=== PATIENT | female | born 1975 | race Caucasian/White ===

== ENCOUNTER 2021-05-28 00:30 | Emergency (ER) | payer OTHER, SELFPAY ==
[2021-05-28] VITALS (23 sets, daily range): BP systolic 97–128; BP diastolic 70–91; PULSE 80–219; RESP 14–25; TEMP 36.3; O2SAT 96–100
--- NOTE | ~2021-05-28 | XR_ITS ---
XR chest 1V portable DATE: 05/28/2021 01:04 INDICATION: Palpitations TECHNIQUE: Portable upright AP chest on 05/28/2021] 0101 hours COMPARISON: None FINDINGS: There is pulmonary vascular congestion and redistribution. Sim B-lines are noted there i s prominence of the minor fissure. Heart size is normal. Mild infiltrate or atelectasis in the lower lung zones; otherwise no pulmonary consolidation, pleural effusion or pneumothorax is detected. IMPRESSION: Pulmonary vascular congestion and pulmonary interstitial and subpleural edema Mild infiltrate or atelectasis in the lower lung zones Dustin Frausto telephoned the report to emergency room physician Dr. Landis on at 0846 hours. Reviewed, dictated and finalized at location A. UTER AIDED DESIGN TECHNICIAN IMPRESSION: Pulmonary vascular congestion and pulmonary interstitial and subple ural edema Mild infiltrate or atelectasis in the lower lung zones Dustin Frausto telephoned the report to emergency room physician Dr. Landis on at 0846 hours.
--- NOTE | 2021-05-28 00:32 | ECG_ITS ---
Measurements Intervals [place] Rate: 209 P: [place]: 0 QRS: 46 QRSD: 74 T: 148 QT: 205 QTc: 382 Interpretive Statements SUPRAVENTRICULAR TACHYCARDIA NONSPECIFIC ST & T-WAVE ABNORMALITY- DIFFUSE LEADS ABNORMAL ECG Electronically Signed On 05-28-2021 6:30:11 CHANNEL MACHINE OPERATOR by Scott Lopez D.O.
--- NOTE | 2021-05-28 00:57 | PC.NURSE ---
6mg of adenosine going, erp at bedside. Patient converted from 212 to 103. Patient tolerated well.
[2021-05-28] MEDS: ADENOSINE IV SOLN 6 MG/2 ML VIAL 18 MG (00:59)
--- NOTE | 2021-05-28 01:03 | PC.NURSE ---
xray in room.
[2021-05-28 01:31] LABS: Basophils Absolute Auto 0.1 K/mm3 (0.0-0.1); Basophils Percent Auto 0.8 % (0.2-1.2); Eosinophils Absolute Auto 0.2 K/mm3 (0-0.3); Eosinophils Percent Auto 4.1 % (0-4.4); Hemoglobin 13.8 g/dL (12.0-15.0); Immature Granulocyte Absolute 0.06 K/mm3 (0.00-0.031); Lymphocytes Absolute Auto 1.97 K/mm3 (0.9-3.2); Lymphocytes Percent Auto 33.4 % (18.3-44.2); Mean Corpuscular HGB Conc 32.9 g/dl (32-36); Mean Corpuscular Hemoglobin 29.2 pg (26-34); Mean Corpuscular Volume 88.8 fl (80-100); Mean Platelet Volume 9.5 fl (7.4-10.4); Monocytes Absolute Auto 0.4 K/mm3 (0.1-0.6); Monocytes Percent Auto 7.5 % (2.6-8.5); Neutrophils Absolute Auto 3.1 K/mm3 (1.3-6.7); Neutrophils Percent Auto 53.2 % (45.5-73.1); Platelet Count Result 219 k/mm3 (150-375); Red Blood Count 4.73 M/mm3 (4.2-5.4); Red Cell Distribution Width 13.4 % (11.5-14.5); White Blood Count 5.9 K/mm3 (4.5-10.0)
[2021-05-28 01:36] LABS: Alanine Aminotransferase 24 U/L (4-35); Alkaline Phosphatase 98 U/L (38-126); Anion Gap 9 mmol/L (8-16); Aspartate Amino Transferase 29 U/L (14-36); Bilirubin,Total 0.6 mg/dL (0.2-1.3); Blood Urea Nitrogen 22 mg/dL (7-17); Calcium 8.3 mg/dL (8.4-10.2); Carbon Dioxide 23 mmol/L (22-30); Chloride 106 mmol/L (98-107); Estimated Glomerular Filt Rate > 60; Glucose 119 mg/dL (65-110); Magnesium 1.9 mg/dL (1.6-2.3); Potassium 3.9 mmol/L (3.4-5.0); Sodium 138 mmol/L (137-145)
--- NOTE | 2021-05-28 03:02 | ED.ARRPALP ---
HPI - Arrhythmia/Palpitations General Chief Complaint: Arrhythmia/Palpitations Stated Complaint: palpations Time Seen by Provider: 05/28/21 00:40 History of Present Illness HPI narrative: Patient is a 46-year-old female who presents ER with heart palpitations. Racing began 15 minutes prior to arrival. No improvement with vagal maneuvers or carotid massage. Has history of PSVT. Does not take any rate control medications. Reports that she had an episode on 05/04/2021 while in [place] and had to be given adenosine 6 mg. Prior to that she had not had an episode in 5 years. She has been referred to an head of marketing analytics in the past but chose not to have procedure. Patient reports she had some decaf coffee today. She does report she has had some coffee with regularity over the last week. No other stimulants. No drug use. Patient reports she is supposed to be set up for a sleep study in the near future. Denies any orthopnea. No leg swelling. Patient reports she has had some fluttering throughout the week which often is a precursor to having SVT. Related Data Allergies Allergy/AdvReac Type Severity Reaction Status Date / Time azithromycin Allergy Unknown Unknown Verified 04/30/21 08:53 Sulfa (Sulfonamide Allergy Unknown Unknown Verified 04/30/21 08:53 Antibiotics) Review of Systems Review of Systems: All systems reviewed & are unremarkable except as noted in HPI and below Constitutional: Constitutional: Denies chills, Denies fever(s) and Denies weakness ENT: Denies nasal congestion and Denies sore throat Cardiovascular: Cardiovascular: Denies chest pain, Reports rapid heart rate and Denies radiating jaw, neck or arm pain Respiratory: Respiratory: Denies cough, Denies dyspnea and Denies wheezing Gastrointestinal: Gastrointestinal: Denies nausea and Denies vomiting Neurologic: Denies focal weakness and Denies numbness PMF Past Medical History Medical History Anxiety History of pulmonary embolism (~05/2005) Hyperlipidemia DANNA (obstructive sleep apnea) PSVT (paroxysmal supraventricular tachycardia) (vaginal after ) 2004, 2005 Vitamin D deficiency Surgical History Surgical History H/O section (~2000) Family History Family History Grandparent Family history of malignant neoplasm of brain Family history of heart disease in male family member before age 55 Other Family history of alcoholism Family history of malignant neoplasm Family history of mental disorder Hypertension Social History Social History Social History: Patient is , lives in [place]. 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 Smoking status: Never smoker Alcohol intake: current Exam Narrative: GENERAL: Well-appearing, obese, and in no acute distress. HEAD: Normocephalic, atraumatic. NECK: Supple. CHEST: Clear to auscultation. No respiratory distress. HEART: Tachycardic and regular. Normal peripheral pulses. ABDOMEN: Soft, nontender, nondistended EXTREMITIES: Normal range of motion. No edema. SKIN: Warm, dry, no rash. NEURO: Alert and oriented x3. PSYCH: Normal mood and affect. Course Course Emergency Course: Rate controlled with adenosine 6 mg. Patient resting comfortably. Discussed case with Dr. Lopez. Recommends metoprolol succinate 25 mg daily and follow-up in office. Patient verbalized understanding. Discharge home. Will give first dose here. Vital Signs Vital signs: Vital Signs Temperature 97.3 F L 05/28/21 00:44 Pulse Rate 214 H 05/28/21 00:44 Respiratory Rate 24 H 05/28/21 00:44 Blood Pressure 128/73 05/28/21 00:44 Pulse Oximetry 100 05/28/21 00:44 Temperature 97.3 F L 05/28/21 00:44 Pulse Rate 214 H 05/28/21 00:44 Respir
[2021-05-28 03:05] LABS: Free T4 Free Thyroxine Reflex 0.72 ng/dL (0.78-2.19)
[2021-05-28] MEDS: METOPROLOL SUCCINATE EXT REL 25 MG TABCR PO (03:40)
== END 2021-05-28 03:46 | disposition home or self-care (01) ==
PROVIDERS: Emergency Provider Emergency Medicine; PCP Family Medicine
DX: I47.1 Supraventricular tachycardia (principal); E78.5 Hyperlipidemia, unspecified; G47.33 Obstructive sleep apnea (adult) (pediatric); E55.9 Vitamin D deficiency, unspecified; F41.9 Anxiety disorder, unspecified; Z86.711 Personal history of pulmonary embolism; R94.31 Abnormal electrocardiogram [ECG] [EKG]; R09.89 Other specified symptoms and signs involving the circulatory and respiratory systems; J81.1 Chronic pulmonary edema
CPT/HCPCS: 36415; 71045; 80053; 83735; 84439; 84443; 85025; 93005; 96374; 99284; A9270; J0153

== ENCOUNTER 2021-06-01 08:06 | Outpatient (CLI) | payer OTHER, SELFPAY ==
--- NOTE | 2021-06-06 14:42 | WPDHOMESLEEP ---
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 She is having cardiac problems with SVT and her consulting psychologist is concerned that she has sleeping issues. She stopped using CPAP after she lost 80 lb many years ago. She has since gained the weight back. She has difficulty falling asleep, difficulty waking in the morning and she has excessive daytime sleepiness. She rarely awakens from sleep feeling short of breath. She frequently awakens at night with heartburn, belching or coughing. She frequently snores and it is enough that complain about it. She frequently has trouble sleeping with a cold. She does not wake as gasping for breath at night. She occasionally has breathing problems at night observed by others. She frequently sweats excessively at night. She occasionally notices her heart pounding or beating irregularly at night. She occasionally falls asleep during the day, rarely falls asleep involuntarily, does not fall asleep while driving. She does not have loss of muscle tone with strong emotion. She occasionally has daytime difficulties due to excessive sleepiness. She rarely feels paralyzed on waking or falling asleep and rarely has vivid dreamlike scenes upon awakening or falling asleep. He does not feel afraid to go to sleep. She occasionally has nightmares. She occasionally remembers her dreams. She frequently has racing thoughts. She rarely feels sad or depressed. She occasionally has anxiety and takes medications for this. She occasionally has muscular tension. She frequently notices parts of her body jerking. She does not kick at night and does not have crawling and aching feelings in her legs. She rarely has any kind of leg pain at night. She does not have morning jaw pain. She frequently grinds her teeth during sleep. She rarely is bothered by pain during the day. She occasionally is awakened by pain at night. She does not wake up feeling stiff in the morning with sore achy muscles. She rarely wakes up with pain in the neck and spine. She has dizziness, headaches, palpitations, fatigue and memory problems. She takes antacids. She reports a 45 lb increase in the last year. Normal bedtime is 11:00 p.m. or as late as midnight, taking 10 minutes to fall asleep typically waking once at night. If she cannot get back to sleep she will watch television. She wakes the morning at 6:00 a.m.. She estimates getting 6-7 hours of sleep at night. On weekends, her bedtime is also 11:00 p.m. to midnight but she gets recovery sleep, sleeps in until 9 a.m., sometimes as late as 11:00 a.m.. She takes naps in the afternoon or evening. A short nap 10 or 15 minutes long as not refreshing. She is drowsy in the morning for 3 hours or longer. She feels better in the morning compared to other times of day. Habits: never smoked tobacco. Caffeine 1 cup of coffee a day. No alcohol or recreational drugs. [facility] Past Medical History Medical History Anxiety History of pulmonary embolism (~05/2005) Hyperlipidemia DANNA (obstructive sleep apnea) PSVT (paroxysmal supraventricular tachycardia) (vaginal after ) 2004, 2005 Vitamin D deficiency Surgical History Surgical History H/O section (~2000) Family History Family History Grandparent Family history of malignant neoplasm of brain Family history of heart disease in male family member before age 55 O
[2021-06-06 14:59] VITALS: BMI 42.0
== END 2021-06-04 10:03 | disposition home or self-care (01) ==
LOC: ANHCSM 08:06
PROVIDERS: PCP Family Medicine; Visit Provider Nurse Practitioner Family
DX: G47.33 Obstructive sleep apnea (adult) (pediatric) (principal); R06.83 Snoring; G47.10 Hypersomnia, unspecified
CPT/HCPCS: 95800

== ENCOUNTER 2022-06-28 15:28 | Outpatient (CLI) | payer OTHER, SELFPAY ==
[2022-06-28 19:22] LABS: Basophils Absolute Auto 0.1 K/mm3 (0.0-0.1); Basophils Percent Auto 0.9 % (0.2-1.2); Eosinophils Absolute Auto 0.2 K/mm3 (0-0.3); Eosinophils Percent Auto 2.2 % (0-4.4); Hematocrit 40.1 % (37.0-47.0); Hemoglobin 13.4 g/dL (12.0-15.0); Immature Granulocyte Absolute 0.03 K/mm3 (0.00-0.031); Immature Granulocyte Percent A 0.4 % (0-0.5); Lymphocytes Absolute Auto 2.73 K/mm3 (0.9-3.2); Lymphocytes Percent Auto 35.1 % (18.3-44.2); Mean Corpuscular HGB Conc 33.4 g/dl (32-36); Mean Corpuscular Hemoglobin 27.9 pg (26-34); Mean Corpuscular Volume 83.4 fl (80-100); Mean Platelet Volume 9.4 fl (7.4-10.4); Monocytes Absolute Auto 0.4 K/mm3 (0.1-0.6); Monocytes Percent Auto 5.1 % (2.6-8.5); Neutrophils Absolute Auto 4.4 K/mm3 (1.3-6.7); Neutrophils Percent Auto 56.3 % (45.5-73.1); Platelet Count Result 266 k/mm3 (150-375); Red Blood Count 4.81 M/mm3 (4.2-5.4); Red Cell Distribution Width 13.4 % (11.5-14.5); White Blood Count 7.8 K/mm3 (4.5-10.0)
[2022-06-28 19:50] LABS: Alanine Aminotransferase 29 U/L (6-35); Albumin Level 4.5 g/dL (3.5-5.1); Alkaline Phosphatase 116 U/L (38-126); Anion Gap 8 mmol/L (8-16); Aspartate Amino Transferase 27 U/L (14-36); Bilirubin,Total 1.4 mg/dL (0.2-1.3); Blood Urea Nitrogen 17 mg/dL (7-17); Carbon Dioxide 26 mmol/L (22-30); Chloride 103 mmol/L (98-107); Cholesterol 272 mg/dL (0-200); Estimated Glomerular Filt Rate > 60; Glucose 89 mg/dL (65-110); HDL Direct 50 mg/dL; Potassium 3.7 mmol/L (3.4-5.0); Sodium 137 mmol/L (137-145); Triglycerides 218 mg/dL (<150)
[2022-06-28 19:55] LABS: Free T4 Free Thyroxine 1.12 ng/mL (0.78-2.19); Vitamin D 25 Hydroxy 30.1 ng/mL
[2022-06-28 20:01] LABS: LDL Cholesterol Direct 150 mg/dL
== END 2022-06-28 15:29 | disposition home or self-care (01) ==
LOC: ANHGOSHLAB 15:32
PROVIDERS: PCP Family Medicine; Visit Provider Nurse Practitioner Family
DX: Z00.00 Encounter for general adult medical examination without abnormal findings (principal); E78.5 Hyperlipidemia, unspecified; E55.9 Vitamin D deficiency, unspecified; F41.9 Anxiety disorder, unspecified
CPT/HCPCS: 36415; 80053; 80061; 82306; 84439; 84443; 85025

== ENCOUNTER 2022-07-03 08:32 | Outpatient (CLI) | payer OTHER, SELFPAY ==
--- NOTE | 2022-07-29 08:47 | WPDSLEEPSTUD ---
Sleep Study Date of Study: 07/03/22 Ordering Provider: Tamanna Turpin NP Interpreting Physician: Stella Taylor MD Sleep Study Type: Polysomnogram Height: 1.63 m Weight: 118.841 kg Body Mass Index: 44.9 Neck Circumference (inches): 17 [place]: 12 Reason for Sleep Study history of obstructive sleep apnea over 10 years ago; * 06/01/2021 WatchPat showed loud snoring with desaturation to 84%; BMI was 42; she returns for a split night study with a sleep aid Sleep History Betty Lobato is a 47-year-old female with a history of obstructive sleep apnea syndrome with CPAP use over 10 years ago.? She is having cardiac problems with SVT and her senior support engineer is concerned that she has sleeping issues.? She stopped using CPAP after she lost 80 lb many years ago.? She has since gained the weight back.? She has difficulty falling asleep, difficulty waking in the morning and she has excessive daytime sleepiness.? She rarely awakens from sleep feeling short of breath.? She frequently awakens at night with heartburn, belching or coughing.? She frequently snores and it is enough that complain about it.? She frequently has trouble sleeping with a cold.? She does not wake as gasping for breath at night.? She occasionally has breathing problems at night observed by others.? She frequently sweats excessively at night.? She occasionally notices her heart pounding or beating irregularly at night.? She occasionally falls asleep during the day, rarely falls asleep involuntarily, does not fall asleep while driving.? She does not have loss of muscle tone with strong emotion.? She occasionally has daytime difficulties due to excessive sleepiness.? She rarely feels paralyzed on waking or falling asleep and rarely has vivid dreamlike scenes upon awakening or falling asleep.? He does not feel afraid to go to sleep.? She occasionally has nightmares.? She occasionally remembers her dreams.? She frequently has racing thoughts.? She rarely feels sad or depressed.? She occasionally has anxiety and takes medications for this.? She occasionally has muscular tension.? She frequently notices parts of her body jerking.? She does not kick at night and does not have crawling and aching feelings in her legs.? She rarely has any kind of leg pain at night.? She does not have morning jaw pain.? She frequently grinds her teeth during sleep.? She rarely is bothered by pain during the day.? She occasionally is awakened by pain at night.? She does not wake up feeling stiff in the morning with sore achy muscles.? She rarely wakes up with pain in the neck and spine.? She has dizziness, headaches, palpitations, fatigue and memory problems. She takes antacids.? ? She reports a 45 lb increase in the last year. Normal bedtime is ? 11:00 p.m. or as late as midnight, taking 10 minutes to fall asleep typically waking once at night.? If she cannot get back to sleep she will watch television.? She wakes the morning at 6:00 a.m..? She estimates getting 6-7 hours of sleep at night.? On weekends, her bedtime is also 11:00 p.m. to midnight but she gets recovery sleep, sleeps in until 9 a.m., sometimes as late as 11:00 a.m.. ? She takes naps in the afternoon or evening.? A short nap 10 or 15 minutes long as not refreshing.? She is drowsy in the morning for 3 hours or longer.? She feels better in the morning compared to other times of day. Habits:? never smoked tobacco.? Caffeine 1 cup of coffee a day.? No alcohol or recreational drugs. [facility] Past Medical History Medical History Anxiety Chondromalacia, left knee Chondromalacia, right knee History of pulmonary embolism (~05/2005) Hyperlipidemia DANNA (obstructive sleep apnea) PSVT (paroxysmal supraventricular tachycardia) (vaginal after ) 2004, 2005 Vitamin D deficiency Surgical History Surgical History H/O section (~2000)
[2022-07-29 10:42] VITALS: BMI 44.9
== END 2022-07-04 06:36 | disposition home or self-care (01) ==
LOC: ANHCSM 08:33
PROVIDERS: PCP Family Medicine; Visit Provider Nurse Practitioner Family
DX: G47.33 Obstructive sleep apnea (adult) (pediatric) (principal)
CPT/HCPCS: 95810

== ENCOUNTER 2022-08-02 10:46 | Outpatient (CLI) | payer OTHER, SELFPAY ==
[2022-08-02 19:17] LABS: Vitamin D 25 Hydroxy 34.5 ng/mL
[2022-08-02 19:19] LABS: Alanine Aminotransferase 25 U/L (6-35); Albumin Level 4.1 g/dL (3.5-5.1); Alkaline Phosphatase 93 U/L (38-126); Anion Gap 9 mmol/L (8-16); Aspartate Amino Transferase 25 U/L (14-36); Bilirubin,Total 0.7 mg/dL (0.2-1.3); Blood Urea Nitrogen 16 mg/dL (7-17); Calcium 8.6 mg/dL (8.4-10.2); Carbon Dioxide 23 mmol/L (22-30); Chloride 106 mmol/L (98-107); Cholesterol 228 mg/dL (0-200); Estimated Glomerular Filt Rate > 60; Glucose 88 mg/dL (65-110); HDL Direct 42 mg/dL; Potassium 3.9 mmol/L (3.4-5.0); Sodium 138 mmol/L (137-145); Triglycerides 158 mg/dL (<150)
[2022-08-02 19:30] LABS: LDL Cholesterol Direct 138 mg/dL
== END 2022-08-02 10:47 | disposition home or self-care (01) ==
LOC: ANHGOSHLAB 10:46
PROVIDERS: PCP Family Medicine; Visit Provider Nurse Practitioner Family
DX: E78.5 Hyperlipidemia, unspecified (principal); E55.9 Vitamin D deficiency, unspecified; G47.61 Periodic limb movement disorder
CPT/HCPCS: 36415; 80053; 80061; 82306; 82728

== ENCOUNTER 2023-01-11 09:47 | Outpatient (CLI) | payer OTHER, SELFPAY ==
--- NOTE | ~2023-01-11 | MM_ITS ---
EXAMINATION: MM screening marah BI w zenaida HISTORY: Screening mammogram TECHNIQUE: Craniocaudal and mediolateral oblique 3-D tomosynthesis images were obtained and synthetic 2-D images were generated. CAD analysis was submitted and interpreted. COMPARISON: 02/20/2015 diagnostic right mammogram and limited right breast ultrasound examination 12/15/2014 bilateral screening mammogram BREAST PARENCHYMAL COMPOSITION: The breasts are almost entirely fatty. FINDINGS: There is no evidence of suspicious mass, calcification, or architectural distortion to sugg est malignancy in either breast. There has been no suspicious interval change. IMPRESSION: 1. No mammographic evidence of malignancy. 2. Recommend routine screening mammography in one year. BI-RADS Category 1: Negative Reviewed, dictated and finalized at location A.
== END 2023-01-11 09:48 | disposition home or self-care (01) ==
LOC: ANHIMG 09:50
PROVIDERS: PCP Family Medicine; Visit Provider Nurse Practitioner Family
DX: Z12.31 Encounter for screening mammogram for malignant neoplasm of breast (principal)
CPT/HCPCS: 77063; 77067

== ENCOUNTER 2023-01-18 10:19 | Outpatient (CLI) | payer OTHER, SELFPAY ==
[2023-01-18 10:51] LABS: Alanine Aminotransferase 22 U/L (6-35); Albumin Level 3.9 g/dL (3.5-5.1); Alkaline Phosphatase 107 U/L (38-126); Anion Gap 10 mmol/L (8-16); Aspartate Amino Transferase 22 U/L (14-36); Bilirubin,Total 0.9 mg/dL (0.2-1.3); Blood Urea Nitrogen 19 mg/dL (7-17); Calcium 8.6 mg/dL (8.4-10.2); Carbon Dioxide 23 mmol/L (22-30); Chloride 107 mmol/L (98-107); Cholesterol 169 mg/dL (0-200); Estimated Glomerular Filt Rate > 60; Glucose 102 mg/dL (65-110); HDL Direct 41 mg/dL; Potassium 4.3 mmol/L (3.4-5.0); Sodium 140 mmol/L (137-145); Triglycerides 144 mg/dL (<150)
[2023-01-18 11:01] LABS: LDL Cholesterol Direct 88 mg/dL
[2023-01-18 12:26] LABS: Vitamin D 25 Hydroxy 44.8 ng/mL
== END 2023-01-18 10:20 | disposition home or self-care (01) ==
LOC: ANHLAB 10:21
PROVIDERS: PCP Family Medicine; Visit Provider Nurse Practitioner Family
DX: E78.5 Hyperlipidemia, unspecified (principal); E55.9 Vitamin D deficiency, unspecified
CPT/HCPCS: 36415; 80053; 80061; 82306

== ENCOUNTER 2023-02-09 13:41 | Emergency (ER) | payer OTHER, SELFPAY ==
[2023-02-09 13:48] VITALS: BP 104/89; PULSE 88; RESP 16; TEMP 36.5; O2SAT 98
--- NOTE | 2023-02-09 13:50 | ED.URI ---
HPI - URI/Sore Throat General Chief Complaint: Upper Respiratory Infection Stated Complaint: Cough Time Seen by Provider: 02/09/23 14:05 Source: patient and RN notes reviewed Mode of arrival: ambulatory Limitations: no limitations History of Present Illness HPI Narrative: 48-year-old female presents with concern for persistent cough. She reports symptoms started on Friday and became productive yesterday. She reports she has been using Tylenol and cough syrup. She reports persistent coughing that is causing her to be incontinent of urine, reports sinus headache when she coughs. She denies nasal congestion, rhinorrhea, sore throat, fever, aches, chills, sweats MD elicited complaint: cough Related Data Home Medications Medication Instructions Recorded Confirmed vitamin B complex (B 1 tablet PO DAILY 07/01/22 01/21/23 Complex-Vitamin B12 tablet) cholecalciferol (vitamin D3) 50 50 mcg PO DAILY 01/21/23 01/21/23 mcg (2,000 unit) capsule Allergies Allergy/AdvReac Type Severity Reaction Status Date / Time azithromycin Allergy Unknown Unknown Verified 02/09/23 13:59 Sulfa (Sulfonamide Allergy Unknown Unknown Verified 02/09/23 13:59 Antibiotics) Review of Systems Review of Systems: CONSTITUTIONAL: Denies malaise, chills, sweats, or fever. EYES: Denies visual changes, redness, or discharge. ENT: Denies rhinorrhea, congestion, sinus pain, otalgia and sore throat. CARDIOVASCULAR: Denies chest pain, palpitations, or edema. RESPIRATORY: Reports productive cough. Denies dyspnea. GASTROINTESTINAL: Denies abdominal pain, nausea, vomiting, diarrhea SKIN: Denies rash or itching. MUSCULOSKELETAL: Denies myalgia. NEUROLOGIC: Reports headache. All systems reviewed & are unremarkable except as noted in HPI and below PMFSH Past Medical History Medical History Anxiety Chondromalacia, left knee Chondromalacia, right knee History of pulmonary embolism (~05/2005) Hyperlipidemia DANNA (obstructive sleep apnea) Periodic limb movement disorder PSVT (paroxysmal supraventricular tachycardia) Sleep apnea with use of continuous positive airway pressure (CPAP) (vaginal after ) 2004, 2005 Vitamin D deficiency Surgical History Surgical History H/O section (~2000) Family History Family History Grandparent Family history of malignant neoplasm of brain Family history of heart disease in male family member before age 55 Other Family history of alcoholism Family history of malignant neoplasm Family history of mental disorder Hypertension Social History Social History (Updated 01/21/23 @ 15:10 by Soni Santoro CMA) Social History: Patient is , lives in [place]. 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 Smoking status: Never smoker Alcohol intake: current Substance use: never Substance use type: does not use Living arrangements: with family Occupation/Education: occupation Gender identity (if verbalized by the patient): Female Sexual Orientation (if Verbalized by the Patient): Straight or Heterosexual Agree to blood products: Yes Comments At time of signature, agree with nursing past medical, surgical, social and family history. There is no relevant family history pertinent to the presenting complaint Exam Narrative: GENERAL: Well-appearing, well-nourished, and in no acute distress. HEAD: Normocephalic EYES: PERRLA, conjunctivae clear ENT: Nares clear, turbinates edematous and erythematous, clear discharge. Mucous membranes moist. TM pearly jaeger with sharp light reflex bilaterally; no tragal tenderness. Oropharynx not erythematous without lesions. Tonsils not enlarged and without exudate, no drooling, no hoarseness, no trismus, uvula midline. NECK: Supple. No lymphadenopathy CHEST:
== END 2023-02-09 14:21 | disposition home or self-care (01) ==
PROVIDERS: Emergency Provider Nurse Practitioner; PCP Family Medicine
DX: J40 Bronchitis, not specified as acute or chronic (principal); E78.5 Hyperlipidemia, unspecified
CPT/HCPCS: 99213; G0463

== ENCOUNTER → 2023-03-13 14:01 | Outpatient (CLI) | payer OTHER, SELFPAY ==
--- NOTE | ~2023-03-13 | XR_ITS ---
XR chest 2V DATE: 03/13/2023 14:11 INDICATION: Cough and shortness of breath for several weeks. TECHNIQUE: 2 views COMPARISON: 05/28/2021 portable AP chest. FINDINGS: Resolution of congestive changes compared to 05/28/2021. Normal heart size. No pulmonary vascular congestion, pulmonary infiltrate or consolidation, pleural e ffusion or pneumothorax is detected. IMPRESSION: No active cardiopulmonary disease Reviewed, dictated and finalized at location L.
== END ==
PROVIDERS: PCP Family Medicine; Visit Provider Family Medicine
DX: R05.9 Cough, unspecified (principal); R06.02 Shortness of breath
CPT/HCPCS: 71046

== ENCOUNTER 2023-07-26 15:07 | Emergency (ER) | payer OTHER, SELFPAY ==
--- NOTE | 2023-07-26 | ECG_ITS ---
Measurements Intervals [place] Rate: 104 P: 18 [place]: 138 QRS: 23 QRSD: 86 T: 26 QT: 343 QTc: 452 Interpretive Statements SINUS TACHYCARDIA EARLY PRECORDIAL R/S TRANSITION BASELINE WANDER- I, II, III BORDERLINE ECG COMPARED TO ECG 07/26/2023 15:12:13 SINUS TACHYCARDIA NOW PRESENT Electronically Signed On 07-27-2023 16:05:51 CDT by Scott Lopez D.O.
--- NOTE | ~2023-07-26 | CT_ITS ---
EXAMINATION: CTA chest PE protocol DATE: 07/26/2023 16:14 INDICATION: SOA TECHNIQUE: Computed tomography angiography (CTA) of the chest was performed with 100 mL Omnipaque-350 intravenous contrast timed to evaluate the pulmonary arteries. Coronal maximum intensity projection 3D-reconstructions were created by the technologist. The dose-length product (DLP) was 1002.56 mGy-cm . Automated exposure control and iterative reconstruction technique were employed. COMPARISON: X-ray chest, same date. FINDINGS: Lung parenchyma and airways: Mild septal thickening. Moderate scattered central groundglass opacities . Bronchovascular interstitial thickening. Pleura: Unremarkable. Thoracic inlet, axillae and chest wall: Unremarkable. Thoracic aorta: No significant dilation. No dissection. Mediastinum: Normal. Heart and pericardium: Mildly enlarged. No pericardial effusion. Coronary artery calcifications: Absent. Upper abdomen: Cholelithiasis, without surrounding inflammatory change. Bones: No acute osseous finding. Pulmonary arteries: Study quality: Adequate. No pulmonary emboli detected. IMPRESSION: No CT evidence of acute pulmonary embolus. Mild cardiomegaly. Moderate pulmonary edema. Reviewed, dictated and finalized at location K.
--- NOTE | 2023-07-26 15:11 | ECG_ITS ---
Measurements Intervals [place] Rate: 217 P: [place]: 0 QRS: 64 QRSD: 84 T: 62 QT: 205 QTc: 390 Interpretive Statements SUPRAVENTRICULAR TACHYCARDIA ST-T WAVE ABNORMALITY IN INF/LAT LEADS- CONSIDER ISCHEMIA OR RATE RELATED ABNORMAL ECG COMPARISON TO PRIOR ECG 05-28-21 0:35 NO SIGNIFICANT CHANGES Electronically Signed On 07-26-2023 18:49:34 CDT by Scott Lopez D.O.
[2023-07-26 15:12] VITALS: BP 140/91; PULSE 219; RESP 18; TEMP 36.4; O2SAT 100
--- NOTE | 2023-07-26 15:19 | PC.NURSE ---
patient confirmed in SVT. Dr. Peterson at bedside. 6mg adenosine given IV at 1519
[2023-07-26 15:21] VITALS: BP 127/92; PULSE 225; RESP 21; O2SAT 93
--- NOTE | 2023-07-26 15:21 | PC.NURSE ---
patient quickly went to HR 101 and then back to HR 226
--- NOTE | 2023-07-26 15:21 | PC.NURSE ---
Dr. Peterson at bedside. HR 223 Given adenosine 6mg given @ 1522
[2023-07-26 15:22] VITALS: BP 130/78; PULSE 99; RESP 18; O2SAT 95
[2023-07-26 15:39] LABS: Basophils Absolute Auto 0.1 K/mm3 (0.0-0.1); Basophils Percent Auto 0.5 % (0.2-1.2); Eosinophils Absolute Auto 0.2 K/mm3 (0-0.3); Eosinophils Percent Auto 1.3 % (0-4.4); Hematocrit 43.6 % (37.0-47.0); Immature Granulocyte Percent A 0.9 % (0-0.5); Lymphocytes Absolute Auto 3.26 K/mm3 (0.9-3.2); Lymphocytes Percent Auto 28.4 % (18.3-44.2); Mean Corpuscular HGB Conc 32.1 g/dl (32-36); Mean Corpuscular Hemoglobin 27.6 pg (26-34); Mean Corpuscular Volume 85.8 fl (80-100); Mean Platelet Volume 10.3 fl (7.4-10.4); Monocytes Absolute Auto 0.7 K/mm3 (0.1-0.6); Monocytes Percent Auto 5.7 % (2.6-8.5); Neutrophils Absolute Auto 7.2 K/mm3 (1.3-6.7); Neutrophils Percent Auto 63.2 % (45.5-73.1); Platelet Count Result 314 k/mm3 (150-375); Red Blood Count 5.08 M/mm3 (4.2-5.4); Red Cell Distribution Width 13.4 % (11.5-14.5); White Blood Count 11.5 K/mm3 (4.5-10.0)
[2023-07-26 15:49] LABS: Alanine Aminotransferase 22 U/L (6-35); Albumin Level 4.3 g/dL (3.5-5.1); Alkaline Phosphatase 133 U/L (38-126); Anion Gap 8 mmol/L (8-16); Aspartate Amino Transferase 25 U/L (14-36); Bilirubin,Total 0.9 mg/dL (0.2-1.3); Blood Urea Nitrogen 23 mg/dL (7-17); Calcium 9.2 mg/dL (8.4-10.2); Carbon Dioxide 27 mmol/L (22-30); Chloride 105 mmol/L (98-107); Estimated CRCL calculation 78 ml/min; Estimated Glomerular Filt Rate 59; Glucose 110 mg/dL (65-110); INR 0.9; Potassium 3.7 mmol/L (3.4-5.0); Prothrombin Time 12.9 Seconds (11.1-14.7); Sodium 140 mmol/L (137-145)
[2023-07-26 15:50] VITALS: O2SAT 95
[2023-07-26 15:50] LABS: Partial Thromboplastin Time 27.8 Seconds (22.3-36.8)
[2023-07-26 15:57] LABS: NT Pro B Type Natriuretic Pept 71 pg/mL (19.9-100)
[2023-07-26 16:01] LABS: Troponin I < 0.012 ng/mL (0.000-0.034)
[2023-07-26] MEDS: SODIUM CHLORIDE 0.9% IV 1,000 ML 999 ML IV CONT (16:27)
--- NOTE | 2023-07-26 16:50 | ED.ARRPALP ---
HPI - Arrhythmia/Palpitations General Chief Complaint: Arrhythmia/Palpitations Stated Complaint: palpitations Time Seen by Provider: 07/26/23 15:08 History of Present Illness HPI narrative: Patient is a 48-year-old female who presents to the ER either with heart palpitations. Patient has history of PSVT. She takes metoprolol at home. She has recently been started on phentermine for weight loss. No fevers or chills or sweats. she does feel pressure moving up into her neck which happens. Mild lightheadedness. Related Data Home Medications Medication Instructions Recorded Confirmed vitamin B complex (B 1 tablet PO DAILY 07/01/22 05/26/23 Complex-Vitamin B12 tablet) cholecalciferol (vitamin D3) 50 50 mcg PO DAILY 01/21/23 05/26/23 mcg (2,000 unit) capsule magnesium oxide 250 mg PO DAILY 02/17/23 05/26/23 Allergies Allergy/AdvReac Type Severity Reaction Status Date / Time azithromycin Allergy Unknown Unknown Verified 07/26/23 15:26 Sulfa (Sulfonamide Allergy Unknown Unknown Verified 07/26/23 15:26 Antibiotics) prednisone Allergy Hives Verified 07/26/23 15:26 Review of Systems Review of Systems: All systems reviewed & are unremarkable except as noted in HPI and below Constitutional: Constitutional: Denies chills and Denies fever(s) Comments: Light headedness ENT: Reports system reviewed and no additional complaints, except as documented Cardiovascular: Cardiovascular: Reports rapid heart rate, Denies radiating jaw, neck or arm pain and Denies slow heart rate Respiratory: Respiratory: Reports no additional respiratory complaints [facility] Past Medical History Medical History Anxiety Chondromalacia, left knee Chondromalacia, right knee History of pulmonary embolism (~05/2005) Hyperlipidemia DANNA (obstructive sleep apnea) Periodic limb movement disorder PSVT (paroxysmal supraventricular tachycardia) Sleep apnea with use of continuous positive airway pressure (CPAP) (vaginal after ) 2004, 2005 Vitamin D deficiency Surgical History Surgical History H/O section (~2000) Family History Family History Grandparent Family history of malignant neoplasm of brain Family history of heart disease in male family member before age 55 Other Family history of alcoholism Family history of malignant neoplasm Family history of mental disorder Hypertension Social History Social History Social History: Patient is , lives in [place]. 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 status: Never smoker Alcohol intake: current Substance use: never Substance use type: does not use Lack of Transportation: No Lack of Food: Never True Current Housing: I Have Housing Concerned About Future Housing: No Difficulty Paying Gas/Electric Bills: No Difficulty Paying for Meds: No Currently Unemployed: No Education: Master's Degree or Higher Difficulty w/ Childcare or Family Care: No Living arrangements: with family Occupation/Education: occupation Gender identity (if verbalized by the patient): Female Sexual Orientation (if Verbalized by the Patient): Straight or Heterosexual Agree to blood products: Yes Exam Narrative: GENERAL: Well-appearing, Morbidly obese, and in no acute distress. HEAD: Normocephalic, atraumatic. ENT: Mucous membranes moist. NECK: Supple. CHEST: Clear to auscultation. No respiratory distress. HEART: tachycardic and regular. Normal peripheral pulses. ABDOMEN: Soft, nontender, nondistended. EXTREMITIES: Normal range of motion. No edema. SKIN: Warm, dry, no rash. NEURO: Alert and oriented x3. PSYCH: Normal mood and affect. Course Course Emergency Course: morena
[2023-07-26] MEDS: FUROSEMIDE INJ 40 MG/4 ML VIAL 20 MG IV PUSH (17:31)
[2023-07-26 17:57] VITALS: BP 112/71; PULSE 103; RESP 16; O2SAT 98
== END 2023-07-26 17:40 | disposition home or self-care (01) ==
PROVIDERS: Emergency Provider Emergency Medicine; PCP Family Medicine
DX: I47.10 Supraventricular tachycardia, unspecified (principal); I51.7 Cardiomegaly; E78.5 Hyperlipidemia, unspecified; E55.9 Vitamin D deficiency, unspecified; G47.33 Obstructive sleep apnea (adult) (pediatric); F41.9 Anxiety disorder, unspecified; Z86.711 Personal history of pulmonary embolism
CPT/HCPCS: 36415; 71275; 80053; 83880; 84484; 85025; 85610; 85730; 93005; 96361; 96374; 99284; J0153; J1940; J7030; Q9967

== ENCOUNTER 2023-09-15 16:18 | Emergency (ER) | payer OTHER, SELFPAY ==
--- NOTE | 2023-09-15 16:22 | ECG_ITS ---
SEE SCANNED COPY FOR CONFIRMED REPORT MTDD
[2023-09-15 16:24] VITALS: BP 113/85; PULSE 104; RESP 20; TEMP 36.6; O2SAT 98
--- NOTE | 2023-09-15 16:35 | PC.NURSE ---
6mg adenosine given by this RN at 163
--- NOTE | 2023-09-15 16:42 | ED.ARRPALP ---
HPI - Arrhythmia/Palpitations General Chief Complaint: Arrhythmia/Palpitations Stated Complaint: SVT Time Seen by Provider: 09/15/23 16:38 History of Present Illness HPI narrative: 48-year-old female with history paroxysmal SVT presented emergency department for evaluation of SVT. Patient states prior to arrival she felt onset of SVT. Patient has had this happen multiple times. Patient does take a low-dose beta-gilmar and does follow-up with Dr. Figueroa Related Data Home Medications Medication Instructions Recorded Confirmed vitamin B complex (B 1 tablet PO DAILY 07/01/22 08/25/23 Complex-Vitamin B12 tablet) cholecalciferol (vitamin D3) 50 50 mcg PO DAILY 01/21/23 08/25/23 mcg (2,000 unit) capsule magnesium oxide 250 mg PO DAILY 02/17/23 08/25/23 Allergies Allergy/AdvReac Type Severity Reaction Status Date / Time azithromycin Allergy Unknown Unknown Verified 09/15/23 16:45 Sulfa (Sulfonamide Allergy Unknown Unknown Verified 09/15/23 16:45 Antibiotics) prednisone Allergy Hives Verified 09/15/23 16:45 Review of Systems Review of Systems: All systems reviewed & are unremarkable except as noted in HPI and below PMFSH Past Medical History Medical History Anxiety Chondromalacia, left knee Chondromalacia, right knee History of pulmonary embolism (~05/2005) Hyperlipidemia DANNA (obstructive sleep apnea) Periodic limb movement disorder PSVT (paroxysmal supraventricular tachycardia) Sleep apnea with use of continuous positive airway pressure (CPAP) (vaginal after ) 2004, 2005 Vitamin D deficiency Surgical History Surgical History H/O section (~2000) Family History Family History Grandparent Family history of malignant neoplasm of brain Family history of heart disease in male family member before age 55 Other Family history of alcoholism Family history of malignant neoplasm Family history of mental disorder Hypertension Social History Social History Social History: Patient is , lives in [place]. 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 Smoking status: Never smoker Alcohol intake: current Substance use: never Substance use type: does not use Lack of Transportation: No Lack of Food: Never True Current Housing: I Have Housing Concerned About Future Housing: No Difficulty Paying Gas/Electric Bills: No Difficulty Paying for Meds: No Currently Unemployed: No Education: Master's Degree or Higher Difficulty w/ Childcare or Family Care: No Living arrangements: with family Occupation/Education: occupation Gender identity (if verbalized by the patient): Female Sexual Orientation (if Verbalized by the Patient): Straight or Heterosexual Agree to blood products: Yes Exam Narrative: APPEARANCE: Well appearing, no pain, no distress, well-nourished. HEAD: normocephalic, atraumatic. EYES: PERRLA/EOMI, conjunctivae clear. NOSE: Normal no drainage EARS:TMS clear with good light reflex. THROAT: Pharynx clear, no exudate. NECK: Supple. No adenopathy, no masses. RESPIRATORY: Airway patent, respirations nonlabored. Clear to auscultation bilaterally, no rales, rhonchi, wheezing. CARDIOVASCULAR: SVT on arrival converted back to normal sinus rhythm ABDOMINAL: Soft, nontender, nondistended, normal bowel sounds MUSCULOSKELETAL: Moves all extremities. Strength/ROM intact, No edema, No calf tenderness. NEURO: Alert. Cranial nerves II through XII intact. Grossly intact SKIN: Warm, dry. Normal Color Course Vital Signs Vital signs: Vital Signs Temperature 98 F 09/15/23 16:24 Pulse Rate 104 H 09/15/23 16:24 Respiratory Rate 20 09/15/23 16:24 Blood Pressure 113/85 09/15/23 16:24 Pulse Oximetry 98 09/15/23 1
[2023-09-15 16:57] LABS: Basophils Percent Auto 0.5 % (0.2-1.2); Eosinophils Absolute Auto 0.1 K/mm3 (0-0.3); Eosinophils Percent Auto 1.5 % (0-4.4); Hematocrit 41.6 % (37.0-47.0); Hemoglobin 12.8 g/dL (12.0-15.0); Immature Granulocyte Absolute 0.05 K/mm3 (0.00-0.031); Immature Granulocyte Percent A 0.6 % (0-0.5); Lymphocytes Percent Auto 30.6 % (18.3-44.2); Mean Corpuscular HGB Conc 30.8 g/dl (32-36); Mean Corpuscular Hemoglobin 27.1 pg (26-34); Mean Corpuscular Volume 88.1 fl (80-100); Monocytes Absolute Auto 0.5 K/mm3 (0.1-0.6); Monocytes Percent Auto 5.8 % (2.6-8.5); Platelet Count Result 290 k/mm3 (150-375); Red Blood Count 4.72 M/mm3 (4.2-5.4); White Blood Count 8.2 K/mm3 (4.5-10.0)
[2023-09-15] MEDS: ADENOSINE IV SOLN 6 MG/2 ML VIAL IV PUSH (17:07)
[2023-09-15 17:11] LABS: Alanine Aminotransferase 18 U/L (6-35); Albumin Level 4.2 g/dL (3.5-5.1); Alkaline Phosphatase 132 U/L (38-126); Anion Gap 10 mmol/L (4-12); Aspartate Amino Transferase 30 U/L (14-36); Bilirubin,Total 0.8 mg/dL (0.2-1.3); Blood Urea Nitrogen 23 mg/dL (7-17); Calcium 8.7 mg/dL (8.4-10.2); Carbon Dioxide 20 mmol/L (22-30); Chloride 110 mmol/L (98-107); Estimated CRCL calculation 98 ml/min; Estimated Glomerular Filt Rate > 60; Glucose 126 mg/dL (65-110); Potassium 3.8 mmol/L (3.4-5.0); Sodium 140 mmol/L (137-145)
[2023-09-15 17:24] VITALS: BP 114/78; PULSE 100; RESP 18; O2SAT 98
== END 2023-09-15 17:42 | disposition home or self-care (01) ==
PROVIDERS: Emergency Provider Emergency Medicine; PCP Family Medicine
DX: I47.10 Supraventricular tachycardia, unspecified (principal); F41.9 Anxiety disorder, unspecified; G47.30 Sleep apnea, unspecified; E78.5 Hyperlipidemia, unspecified
CPT/HCPCS: 36415; 80053; 85025; 93005; 99284; J0153; J7030

== ENCOUNTER 2024-07-03 14:23 | Emergency (ER) | payer OTHER, SELFPAY ==
[2024-07-03 14:33] VITALS: BP 164/89; PULSE 97; RESP 16; TEMP 36.6; O2SAT 98
--- NOTE | 2024-07-03 15:00 | ED_ITS ---
HPI - Female Genitourinary General Chief complaint: Urogenital-Female Stated complaint: UTI SYMPTOMS Time Seen by Provider: 07/03/24 15:00 Source: patient, RN notes reviewed and old records reviewed Mode of arrival: ambulatory Limitations: no limitations History of Present Illness HPI Narrative: 49-year-old female who presents to [facility] with complaints of urinary burning and urgency since Friday. Patient states that she has been taking azo and drinking lots of cranberry juice and water for her symptoms. Patient denies any nausea any chills or fevers. Patient reports no concern for STD exposure. States no vaginal discharge or itching. Patient notes increased symptoms since last night MD elicited complaint: dysuria Onset (ago): day(s) (5-6 days) Severity: moderate Vaginal discharge: none Vaginal bleeding: none Treatment prior to arrival: other (AZO) Related Data Home Medications ?Medication ?Instructions ?Recorded ?Confirmed ?Last Taken ?Type vitamin B complex (B 1 tablet PO DAILY 07/01/22 03/29/24 Unknown History Complex-Vitamin B12 tablet) cholecalciferol (vitamin D3) 50 50 mcg PO DAILY 01/21/23 03/29/24 Unknown History mcg (2,000 unit) capsule magnesium oxide 250 mg PO DAILY 02/17/23 03/29/24 Unknown History ashwagandha extract 500 mg capsule mg PO 03/29/24 03/29/24 Unknown History Allergies Allergy/AdvReac Type Severity Reaction Status Date / Time azithromycin Allergy Unknown Unknown Verified 07/03/24 14:41 Sulfa (Sulfonamide Allergy Unknown Unknown Verified 07/03/24 14:41 Antibiotics) prednisone Allergy Hives Verified 07/03/24 14:41 Review of Systems Review of Systems: CONSTITUTIONAL: Denies fever, chills, or sweats. CARDIOVASCULAR: Denies chest pain, palpitations, or edema. RESPIRATORY: Denies cough or dyspnea. GASTROINTESTINAL: Denies abdominal pain, nausea, vomiting, or diarrhea. GENITOURINARY: Reports dysuria, frequency, urgency. Denies flank pain or hematuria. SKIN: Denies rash or itching. MUSCULOSKELETAL: Denies back pain or myalgia. Denies CVA tenderness NEUROLOGIC: Denies headache All systems reviewed & are unremarkable except as noted in HPI and below PMFSH Past Medical History Medical History Sleep apnea with use of continuous positive airway pressure (CPAP) (~03/2021) Periodic limb movement disorder (vaginal after ) 2004, 2005 History of pulmonary embolism (~05/2005) PSVT (paroxysmal supraventricular tachycardia) (~02/2020) Vitamin D deficiency Hyperlipidemia Anxiety Surgical History Surgical History H/O cardiac radiofrequency ablation (~09/2023) History of cardiac radiofrequency ablation (~09/2023) H/O section (~2000) Family History Family History Grandparent Family history of malignant neoplasm of brain Family history of heart disease in male family member before age 55 Other Family history of alcoholism Family history of malignant neoplasm Family history of mental disorder Hypertension Social History Social History Social History: Patient is , lives in [place]. 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 Smoking status: Never smoker Alcohol intake: current Substance use: never Substance use type: does not use Lack of Transportation: No Lack of Food: Never True Current Housing: I Have Housing Concerned About Future Housing: No Difficulty Paying Gas/Electric Bills: No Difficulty Paying for Meds: No Currently Unemployed: No Education: Master's Degree or Higher Difficulty w/ Childcare or Family Care: No Living arrangements: with family Occupation/Education: occupation Gender identity (if verbalized by the patient): Female Sexual Orientation (if Verbalized by the Patient): Straight or Heterosexual Agree to blood products: Yes Comments At time of signature, agree with nursing past medical, surgical, social and family history. There is no relevant family history pertinent to the presenting complaint Exam Narrative: GENERAL: Well-appearing, well-nourished, and in no acute distress. HEAD: Normocephalic, atraumatic. NECK: Supple. no lymphadenopathy CHEST: Clear to auscultation. No respiratory distress. SAO2 98% on room air HEART: Regular rate and rhythm. No murmur heard. Normal peripheral pulses. ABDOMEN: Soft, nontender on palpation, nondistended, normal active bowel sounds. No CVA tenderness EXTREMITIES: Normal range of motion. No edema. SKIN: Warm, dry, no rash. NEURO: No focal deficits. Alert and oriented x3. Course Course Emergency Course: Patient is aware of diagnosis, understands and agrees to treatment plan.? Anticipatory guidance given.? Patient agrees to follow-up as directed and is aware of reasons to seek care at the emergency department. Portions of this record may have been created with voice recognition software Level of Care: Express Care Visit Vital Signs Vital signs: Vital Signs Temperature 36.6 C 07/03/24 14:33 Pulse Rate 97 07/03/24 14:33 Respiratory Rate 16 07/03/24 14:33 Blood Pressure 164/89 H 07/03/24 14:33 Pulse Oximetry 98 07/03/24 14:33 Temperature 36.6 C 07/03/24 14:33 Pulse Rate 97 07/03/24 14:33 Respiratory Rate 16 07/03/24 14:33 Blood Pressure 164/89 H 07/03/24 14:33 Pulse Oximetry 98 07/03/24 14:33 reviewed MDM - Female Genitourinary MDM Narrative Medical decision making narrative: Exam findings and UA show no acute concerns or changes; patient is non-toxic appearing and is in no distress.? Patient is appropriate for outpatient treatment and follow-up. Differential Diagnosis Differential diagnosis: Likely urinary tract infection, cystitis and other (dysuria) Medical Records Attestation: I reviewed the patient's medical records. Lab Data Attestation: I reviewed the patient's lab results. Lab results narrative: urine dip:Glucose negative bilirubin 2+ ketone negative specific gravity 1.030 blood 2+ pH 5.0 protein 4+ uro bili gingiva 4.0 nitrate positive leukocyte 2+ patient has taken azo Labs: Lab Results 07/03/24 Range/Units 15:14 POC Urine Color [place] POC Urine Clarity Cloudy POC Urine pH 5.0 POC Ur Specif [place] 1.030 POC Urine Protein 4+ (Negative) POC Ur Glucose (UA) Negative (Negative) POC Urine Ketones Negative (Negative) POC Urine Blood 2+ (Negative) POC Urine Nitrite Positive (Negative) POC Urine Bilirubin 2+ (Negative) POC Urine Urobilinogen 4.0 POC U Leukocyte Esteras 2+ (Negative) reviewed Critical Care Time Critical Care Time Critical Care Time: No Discharge Plan Discharge Clinical Impression: UTI (urinary tract infection) Qualifiers: Urinary tract infection type: site unspecified Hematuria presence: with hematuria Qualified Code(s): N39.0 - Urinary tract infection, site not specified Patient Disposition: Home, Self-Care Condition: Stable Instructions: Antibiotic Form, Urinary Tract Infection in Women (ED) Additional Instructions: Increase fluids especially cranberry juice and water, increase especially water Avoid caffeine and carbonated beverages Antibiotic as directed Medicine as directed--cautioned it will cause your urine to be bright orange Tylenol/ibuprofen for pain or fever Follow-up with her primary care provider if further problems or concerns Recheck if you have fever over 101, nausea and vomiting. If your symptoms persist, change or worsen significantly before you can contact your personal physician then please, without delay, go to the emergency department for further evaluation. Follow-up with PCP in 7-10 days or sooner if needed Follow up with PCP soon in regards to your blood pressure which is elevated above threshold for referral. Blood pressure above 120/80 may indicate pre- hypertension. Patient Language: Norwegian Prescriptions: New amoxicillin-pot clavulanate 875-125 mg tablet 1 tablet PO Q12H Qty: 20 0RF Rx Instructions: complete all doses No Action vitamin B complex [B Complex-Vitamin B12] Tablet 1 tablet PO DAILY cholecalciferol (vitamin D3) 50 mcg (2,000 unit) capsule 50 mcg PO DAILY magnesium oxide 250 mg magnesium tablet 250 mg PO DAILY ashwagandha extract 500 mg capsule PO amitriptyline 25 mg tablet 25 mg PO QHS PRN (Reason: sleep) Qty: 90 0RF atorvastatin 20 mg tablet 20 mg PO QHS Qty: 90 1RF citalopram 20 mg tablet 20 mg PO DAILY Qty: 90 1RF Follow-up/Referrals: Solomon Vance MD [Primary Care Provider] - Time of Disposition: 15:18 Quality [place] Coma Scale Eyes: Open Verbal: Oriented and Alert Motor: Follows Commands Mely Coma Total Score: 15
[2024-07-03 15:17] LABS: EDUAAPPEAR Cloudy; EDUABILI 2+ (Negative); EDUABLOOD 2+ (Negative); EDUACOLOR1 Orange; EDUAGLUCOSE Negative (Negative); EDUAKETONE Negative (Negative); EDUALEUKO 2+ (Negative); EDUANITRATE Positive (Negative); EDUAPROTEIN 4+ (Negative)
== END 2024-07-03 15:22 | disposition home or self-care (01) ==
PROVIDERS: Emergency Provider Registered Nurse; PCP Family Medicine
DX: N39.0 Urinary tract infection, site not specified (principal); B96.20 Unspecified Escherichia coli [E. coli] as the cause of diseases classified elsewhere; G47.30 Sleep apnea, unspecified; E78.5 Hyperlipidemia, unspecified; Z86.711 Personal history of pulmonary embolism; F41.9 Anxiety disorder, unspecified; E55.9 Vitamin D deficiency, unspecified
CPT/HCPCS: 81003; 87086; 87186; 99213; G0463

== ENCOUNTER 2024-12-03 08:30 | Outpatient (CLI) | payer OTHER, SELFPAY ==
--- OUTSIDE RECORDS SUMMARY | 2024-12-03 08:33 | XMS_ITS | Clinical Summary ---
Author Organization [facility] Address [address] [place] [address] Phone Care Team Providers Care Hospice/Home Health Aide Name Role Phone Candido Woodruff MD Primary Care Provider Unavail Eric Diallo MD Unavailable [phone] Allergies Active Allergy Reactions Criticality Noted Date Comments Sulfa Antibiotics Rash Medium 03/22/2013 Azithromycin Rash Medium 03/22/2013 Medications metoprolol Succinate 25 MG PO [id number] Take 25 mg by mouth daily. Active escitalopram (LEXAPRO) 20 MG PO TABS Take 20 mg by mouth daily. Active simvastatin 20 MG PO TABS Take 20 mg by mouth every evening. Active CPAP MASK by Does not apply route. Use as directed. Active CPAP SUPPLIES by Does not apply route. Use as directed. Active Active Problems Problem Noted Date Diagnosed Date Sleep apnea 07/29/2013 PVC's (premature ventricular contractions) 03/22 Snoring 03/22/2013 Daytime somnolence 03/22/2013 Paroxysmal SVT (supraventricular tachycardia) Anxiety 03/22/2013 Dyslipidemia 03/22/2013 Migraine 03/22/2013 Palpitations 03/22/2013 Immunizations Immunization Administration Dates Next Due Influenza Vaccine greater than 3 yrs 02/09/2013 Family History Medical History Relation Name Comments Heart Disease Father at age 63 Heart defect Mother ?valve surgery Relation Name Status Comments Father Mother Social History Tobacco Use Types Packs/Day Years Used Date Smoking Tobacco: Never Alcohol Use Standard Drinks/Week Comments Not Asked 0 (1 standard drink = 0.6 oz pur e alcohol) Comments No Sex and Gender Information Value Date Recorded Sex Assigned at Not on file Legal Sex Female 9:50 AM [employer] Gender Identity Not on file Sexual Orientation Not on file Last Filed Vital Signs Vital Sign Reading Time Taken Comments Blood Pressure 116/74 09/08/2013 10:18 AM CDT ra Pulse 80 09/08/2013 10:18 AM CDT Temperature - - Respiratory Rate 12 09/08/2013 10:1 8 AM CDT Oxygen Saturation - - Inhaled Oxygen Concentration - - Weight 110.6 kg (243 lb 12.8 oz) 2013 10:18 AM CDT Height 162.6 cm (5' 4) 09/08/2013 10:1 8 AM CDT Body Mass Index 41.85 09/08/2013 10:18 AM CDT Plan of Treatment Health Maintenance Due Date Last Done Comments Hepatitis C Virus (HCV) Screening 1974 TdaP Immunization 1974 Hepatitis B Immunization (1 of 3 - 19+ 3-dose series) 1993 Pap Smear 1995 Cervical Cancer Screening (CCS) 01/09/2004 HPV/Cotest 01/09/2004 Cologuard 2019 Colonoscopy 2019 Colorectal Cancer Screening 2019 Immunochemical Fecal Occult Blood 2019 Pneumococcal Immunization (5 0+ years) (1 of 1 - PCV) 01/09/2024 Zoster Immunization (1 of 2) 01/09/2024 SARS-COV-2 Immunization (1 - 2023- season) 2024 Influenza Immunization (#1) 2025 02/09/2013 Respiratory Syncytial Virus (RSV) Immunization (Adult) (1 - 1-dose 75+ series) 2049 Human Papillomavirus (HPV) Immunization Aged Out No longer eligible b ased on patient's age to complete this topic Meningococcal Immunization (ACWY) Aged Out No longer eligible based on patient's age to complete this topic Rotavirus Immunization Aged Out No lo nger eligible based on patient's age to complete this topic Insurance Care Teams Hospice/Home Health Aide Relationship Specialty Start Date End Date Candido Woodruff MD PCP - General Family Medicine 03/19/13 Eric Rouse MD [address] [address] Consulting Physician Cardiovascular Disease - Cardiology 03/19/13
--- OUTSIDE RECORDS SUMMARY | 2024-12-03 08:33 | XMS_ITS | Clinical Summary ---
Author Organization [facility] Address [address] [place] [id number] Care Team Providers Care Single End Sewer Name Role Phone Laz Vance MD Primary Care Provider Allergies Active Allergy Reactions Criticality Noted Date Comments Azithromycin Hives,Fever Medium Other Rash Medium 03/22/2013 Patient states she had rash after back to back steroid use, unsure of steroid name Sulfa (Sulfonamide Antibiotics) Rash,Fever Medium 06/09/2017 Medications atorvastatin (LIPITOR) 20 mg tabletIndicatio ns:hyperlipidem ia Take 1 tablet (20 mg total) by mouth nightly 08/08/2022 Active citalopram (CeleXA) 20 mg tabletIndicatio ns:Anxiety with Depression Take 1 tablet (20 mg total) by mouth nightly 08/08/2022 Active cyanocobalamin (Vitamin B-12) 1,000 mcg sublingual tabletIndicatio ns:Prevention of Vitamin B12 Deficiency Take 1 tablet (1,000 mcg total) by mouth nightly Active magnesium oxide (MAG-OX) 250 mg (150.8 mg elemental) tabletIndicatio ns:hypomagnesem ia Take 1 tablet (250 mg total) by mouth nightly Active glucosamine sulfate (GLUCOSAMINE ORAL) Take 1 tablet by mouth nightly Active cholecalciferol (VITAMIN D-3) 2000 unit capsuleIndicati ons:Vitamin D Deficiency Take 1.5 capsules (3,000 Units total) by mouth nightly Active ASHWAGANDHA EXTRACT ORALIndications :supplement Take 2,100 mg by mouth nightly Active cetirizine (ZyrTEC) 10 mg tabletIndicatio ns:Allergic Rhinitis Take 1 tablet (10 mg total) by mouth nightly Active vitamin K2 100 mcg capsule Take 1 tablet by mouth nightly Active acetaminophen (TYLENOL) 500 mg tablet Take 2 tablets (1,000 mg total) by mouth every 6 (six) hours as needed for pain Active Active Problems Problem Noted Date Diagnosed Date SVT (supraventricular tachycardia) 01/21/2024 Assessment & Plan (05/27/2024 3:49 PM CLOTH EDGE SINGER): -WPW ablation of orthodromic AVRT 01/21/2024 -She is doing well post ablation - no recurrence of SVT -She will follow up as needed for recurrent arrhythmias Assessment & Plan (02/19/2024 4:10 PM CDT): WPW ablation of orthodromic AVRT 01/21/2024 She is doing well post ablation - no recurrence of SVT She can stop Eliquis at 30 days Given her history of SVT, recommend avoidance of any stimulants when choosing a weight loss drug. She plans to discuss with her PCP Morbid obesity with BMI of 45.0-49.9, adult 06/2022 Morbid obesity 10/11/2022 Hyperlipidemia LDL goal <130 06/26/2021 Assessment & Plan (01/21/2024 5:22 PM CDT): - Continue home atorvastatin 20mg Anxiety 06/26/2021 History of pulmonary embolus (PE) 06/26/2021 Assessment & Plan (01/21/2024 5:22 PM CDT): - history of PE assoc with in 2005, not on ac DANNA (obstructive sleep apnea) 06/26/2021 Assessment & Plan (01/21/2024 5:22 PM CDT): - home CPAP PSVT (paroxysmal supraventricular tachycardia) 0 06/26/2021 Assessment & Plan (01/22/2024 10:58 AM CDT): - Multiple SVT episodes since 2011 requiring adenosine. - Successful ablation on 01/20 without complication. - Per EP recs, start eliquis 5mg BID, plan to use 1 month post-ablation. - stop metop. - telemetry monitoring, unremarkable overnight. - EP to reassess today. Lipid screening 06/26/2021 Syncope and collapse 06/26/2021 Encounters Date Type Department Care Team Description 11/01/2024 8:30 AM CDT Office Visit [facility] Cardiology [address] [place] [id number] Ameya Figueroa MD PSVT (paroxysmal supraventricular tachycardia) (Primary Dx); Hyperlipidemia LDL goal <130; Morbid obesity with BMI of 45.0-49.9, adult (HCC); DANNA (obstructive sleep apnea) from Last 3 Months Surgical History Surgery Date Site/Laterality Comments CYST REMOVAL 05/12/2000 - 05/11/2001 Right right fallopian tube cyst removal SECTION 05/12/2000 - 05/11/2001 Medical History Medical History Date Comments Hx Other Medical overweight, c-s ection, anxiety, DANNA, PE with prega; Comments: MAF 05/26/2015 - Syncope Arrhythmia Sleep apnea Family History Medical History Relation Name Comments Alcohol abuse Father Alcoholism; Heart disease Father Other Mother Alive and well; Anesthesia problems Neg Hx Relation Name Status Comments Father (Age 55) Mother Alive Social History Tobacco Use Types Packs/Day Years Used Date Smoking Tobacco: Never Smokeless Tobacco: Never Tobacco Cessation:Counseling Given: Not Answered Alcohol Use Standard Drinks/Week Comments Yes 0 (1 standard drink = 0.6 oz pur e alcohol) AUDIT-C Answer Date Recorded Q1: How often do you have a drink containing alcohol? Never 01/21/2024 Q2: How many drinks containi ng alcohol do you have on a typical day when you are drinking? Patient does not drink Q3: How often do you have si x or more drinks on one occasion? Never 01/21/2024 PHQ-2 Answer Date Recorded PHQ-2 Total Score (If total score is 3 or more points, staff should administer the PHQ-9) 0 01/21/2024 PHQ-9 Answer Date Recorded PHQ-9 Total Score 0 01/21/2024 Personal Safety Answer Date Recorded Have you ever been in or are you currently in a harmful physical or emotional relationship or is someone making you feel afraid or unsafe? Denies 01/21/2024 Comments No Sex and Gender Information Value Date Recorded Sex Assigned at Not on file Legal Sex Female 9:19 AM CDT Gender Identity Not on file Sexual Orientation Not on file Obstetrics History Last Filed Vital Signs Vital Sign Reading Time Taken Comments Blood Pressure 116/68 11/01/2024 8:42 AM CDT Pulse 76 11/01/2024 8:42 AM CDT Temperature 36.6 C (97.9 F) 01/22/2024 8:20 AM CDT Respiratory Rate 18 01/22/2024 8:20 AM CDT Oxygen Saturation 97% 11/01/2024 8:42 AM CDT Inhaled Oxygen Concentration - - Weight 134.7 kg (297 lb) 11/01/2024 8:42 AM CDT Height 162.6 cm (5' 4) 11/01/2024 8:42 AM CDT Body Mass Index 50.98 11/01/2024 8:42 AM CDT Plan of Treatment Health Maintenance Due Date Last Done Comments Breast Cancer Screening-Mammogram 1974 Cervical Cancer Screening 1974 Colon Cancer Screening-Colonoscopy 1974 Hepatitis C Screening 1974 DTaP/Tdap/Td Vaccine (1 - Tdap) 1985 Hepatitis B Screening 01/09/1992 Regular Well Visit/Exam 18-64 01/09/1992 Zoster Vaccine (1 of 2) 01/09/2024 Covid-19 Vaccine (4 - 2023-2 5 season) 2024 05/24/2021, 07/30/2020, 07/08/2020 Depression Screening 11/18/2024 11/19/2023, 11/19/2023 Influenza Vaccine (#1) 2025 02/09/2013 Pneumococcal vaccine <65 Aged Out No longer eligible based on patient's age to complete this topic Medical Devices Implanted Type Area Janitor Cleaner Device Identifier Shelf Expiration Date Model / Serial / Lot [employer] Device Closure Vascade Od5 Fr Femoral Artery [id number] - [id number] - [id number] Implanted:Qty : 1 on 01/21/2024 by Noé Link MD at [facility] Vascular Closure Device [employer] 09/17/2025 [id number] -[id number] / [id number] / [id number] [employer] Vascade Mvp 6-12fr Venous Closure [id number] - [id number] - [id number] Implanted:Qty : 1 on 01/21/2024 by Noé Link MD at [facility] Vascular Closure Device Left: Groin [employer] 09/03/2025 800-612C- 10U / [id number] / [id number] [employer] Vascade Mvp 6-12fr Venous Closure [id number] - [id number] - [id number] Implanted:Qty : 1 on 01/21/2024 by Noé Link MD at [facility] Vascular Closure Device Right: Groin [employer] 09/03/2025 800-612C- 10U / [id number] / [id number] [employer] Vascade Mvp 6-12fr Venous Closure [id number] - [id number] - [id number] Implanted:Qty : 1 on 01/21/2024 by Noé Link MD at [facility] Vascular Closure Device Left: Groin [employer] 09/03/2025 800-612C- 10U / [id number] / [id number] Procedures Procedure Name Priority Date/Time Associated Diagnosis Comments POCT LIPID PANEL Routine 11/01/2024 8:44 AM CDT Hyperlipidemia LDL goal <130 from Last 3 Months Results * (ABNORMAL) POCT lipid panel (11/01/2024 8:44 AM CDT) Cholesterol, POC 164 <200 MG/DL HDL, POC 34(A) >=40 mg/dL Triglycerides, POC 226(A) <=149 mg/dL LDL Cholesterol POC 86 <=129 mg/dL Chol/HDL Ratio, POC 2.6 NONE Non-HDL Cholesterol, POC 131 NONE mg/dL Cholesterol Total, POC 164 30 - 199 mg/dL Capillary blood 11/01/2024 8 :44 AM CDT us Ameya Figueroa MD POINT OF CARE TEST ORDERA BLES Final Result from Last 3 Months Insurance [facility] Address: [place] [address] [facility] Address: [address] [place] [address] [facility] Address: [place] [address] Advance Directives For more information, please contact: [phone] * Full Code (Latest Code Status on File) Date Activated Date Inactivated Comments 01/21/2024 4:24 PM 01/22/2024 4:14 PM Care Teams Single End Sewer Relationship Specialty Start Date End Date Laz Vance MD [facility] [address] [address] PCP - General Family Practice 02/19/24
--- OUTSIDE RECORDS SUMMARY | 2024-12-03 08:33 | XMS_ITS | Clinical Summary ---
Author Organization [facility] Address [address] [place] [address] Care Team Providers Care Campus Wellness Coordinator Name Role Phone Ajith Funk MD Primary Care Provider [phone] Source Comments [facility],non-owned Affiliates and Associated Physician Practices is amultiple site organization consisting of ambulatory clinics and hospital sitesin [place], [place], [place] and [place]. This disclosure is being madepursuant to the Care Everywhere program and may not contain all information available regarding this patient. Last updated 18.[facility] [employer] Allergies Active Allergy Reactions Criticality Noted Date Comments Azithromycin Rash,Fever Medium 11/30/2018 Sulfa Drugs Rash,Fever Medium 11/30/2018 Social History Tobacco Use Types Packs/Day Years Used Date Smoking Tobacco: Never Assessed Comments Unknown Sex and Gender Information Value Date Recorded Sex Assigned at Not on file Legal Sex Female 4:17 PM CDT Gender Identity Not on file Sexual Orientation Not on file Plan of Treatment Health Maintenance Due Date Last Done Comments COLOGUARD (AGES 45-75) - COL ON CA SCREENING 1974 COLON MONITORING 1974 COLONOSCOPY - COLON CA SCREENING 1974 CT COLONOGRAPHY - COLON CA SCREENING 1974 Colorectal Cancer Screening 1974 FIT - COLON CA SCREENING 1974 FLEX SIG - COLON CA SCREENING 1974 LIPID TESTING 1974 MAMMOGRAM 1974 HIV SCREENING 1989 HEPATITIS C SCREENING 01/04/1992 DTAP/TDAP/TD VACCINES (1 - Tdap) 1993 HEPATITIS B VACCINE (1 of 3 - 19+ 3-dose series) 1993 PNEUMOCOCCAL VACCINE 50+ (1 of 1 - PCV) 01/09/2024 ZOSTER VACCINE (1 of 2) 01/09/2024 COVID-19 VACCINE (1 - 2023-2 5 season) 2024 DEPRESSION SCREENING 05/12/2024 INFLUENZA VACCINE (#1) 2025 02/09/2013 HIB VACCINE Aged Out No longer eligi ble based on patient's age to complete this topic HPV VACCINE Aged Out No longer eligi ble based on patient's age to complete this topic MENINGOCOCCAL (Group B) VACC INE SHARED DECISION-MAKING Aged Out No longer eligibl e based on patient's age to complete this topic MENINGOCOCCAL GROUPS A/C/Y/W VACCINE Aged Out No longer eligible b ased on patient's age to complete this topic Insurance [place], [place] [id number] [place] [address] Care Teams Campus Wellness Coordinator Relationship Specialty Start Date End Date Ajith Funk MD [address] [place] [address] PCP - General Family Medicine 11/30/18
--- OUTSIDE RECORDS SUMMARY | 2024-12-03 08:33 | XMS_ITS | Referral Summary ---
Author Organization [facility] Address [address] [place] [id number] Care Team Providers Care Motor Scooter Mechanic Name Role Phone Laz Vance MD Primary Care Provider Encounters Date Type Department Care Team Description 11/01/2024 8:30 AM CDT Office Visit [facility] Cardiology [address] [place] [address] Ameya Figueroa MD PSVT (paroxysmal supraventricular tachycardia) (Primary Dx); Hyperlipidemia LDL goal <130; Morbid obesity with BMI of 45.0-49.9, adult (HCC); DANNA (obstructive sleep apnea) from Last 3 Months Allergies Active Allergy Reactions Criticality Noted Date [...] 01/21/2024 Assessment & Plan (05/27/2024 3:49 PM DEPUTY DIRECTOR OF FINANCE): -WPW ablation of orthodromic AVRT 01/21/2024 -She [...] Lipid screening 06/26/2021 Syncope and collapse 06/26/2021 Social History Tobacco Use Types Packs/Day Years [...] 11/01/2024 8:42 AM CDT Plan of Treatment Not on file Medical Devices Implanted Type Area Systems Integration Manager Device Identifier Shelf Expiration Date Model / Serial / Lot [employer] Device Closure Vascade Od5 Fr Femoral Artery [id number] - [id number] - [id number] Implanted:Qty : 1 on 01/21/2024 by Noé Link MD at [facility] Vascular Closure Device [employer] 09/17/2025 [id number] -[id number] / [id number] / [id number] [employer] Vascade Mvp 6-12fr Venous Closure [id number] - [id number] - [id number] Implanted:Qty : 1 on 01/21/2024 by Noé Link MD at [facility] Vascular Closure Device Left: Groin [employer] 09/03/2025 800-612C- 10U / [id number] / [id number] [employer] Vascade Mvp 6-12fr Venous Closure [id number] - [id number] - [id number] Implanted:Qty : 1 on 01/21/2024 by Noé Link MD at [facility] Vascular Closure Device Right: Groin [employer] 09/03/2025 800-612C- 10U / [id number] / [id number] [employer] Vascade Mvp 6-12fr Venous Closure [id number] - [id number] - [id number] Implanted:Qty : 1 on 01/21/2024 by Noé Link MD at [facility] Vascular Closure Device Left: Groin [employer] 09/03/2025 800-612C- 10U / [id number] / [id number] Procedures Procedure Name Priority Date/Time Associated [...] Capillary blood 11/01/2024 8 :44 AM CDT Ameya Figueroa MD POINT OF CARE TEST ORDERA BLES Final Result from Last 3 Months Insurance [facility] Advance Directives For more information, please contact: [phone] * Full Code (Latest Code Status on File) Date Activated Date Inactivated Comments 01/21/2024 4:24 PM 01/22/2024 4:14 PM Care Teams Motor Scooter Mechanic Relationship Specialty Start Date End Date Laz Vance MD [address] [place] [address] [address] PCP - General Family Practice 02/19/24
--- OUTSIDE RECORDS SUMMARY | 2024-12-03 08:33 | XMS_ITS | Encounter Summary ---
Author Organization [facility] Address [address] [place] [address] Phone Care Team Providers Care Setter Juice Packaging Machines Name Role Phone Tamanna Turpin NP Primary Care Provider [phone] Laz Vance MD Primary Care Provider Encounter Details Date Type Department Care Team (Late st Contact Info) Description 10/21/2023 Telephone [facility] Cardiology [address] [place] [address] [place] [id number] Asher Damon MD PhD [address] [place], [place] [id number] Social History Tobacco Use Types Packs/Day Years Used Date Smoking Tobacco: Never Smokeless Tobacco: Never Alcohol Use Standard Drinks/Week Comments Yes 0 (1 standard drink = 0.6 oz pur e alcohol) Personal Safety Answer Date Recorded Getting School Help Needed Not on file 07/26 Comments Unknown Sex and Gender Information Value Date Recorded Sex Assigned at Not on file Legal Sex Female 9:19 AM CDT Gender Identity Not on file Sexual Orientation Not on file documented as of this encounter Plan of Treatment Not on file documented as of this encounter Visit Diagnoses Not on filedocumented in this encounter Care Teams Setter Juice Packaging Machines Relationship Specialty Start Date End Date Tamanna Turpin NP PCP - General Family Medicine 07/24/21 02/18/24 Laz Vance MD [address] [facility] [address] [address] PCP - General Family Practice 02/19/24 documented as of this encounter
[2024-12-03 13:08] LABS: Hematocrit 41.2 % (37.0-47.0); Hemoglobin 12.8 g/dL (12.0-15.0); Immature Granulocyte Percent A 0.4 % (0-0.5); Lymphocytes Absolute Auto 2.69 K/mm3 (0.9-3.2); Mean Corpuscular HGB Conc 31.1 g/dl (32-36); Mean Corpuscular Hemoglobin 27.3 pg (26-34); Mean Corpuscular Volume 87.8 fl (80-100); Nucleated Red Blood Cells Absolute Auto 0.000 K/mm3 (0.0-0.012); Nucleated Red Blood Cells Perc 0.0 % (0.0-0.2); Platelet Count Result 259 k/mm3 (150-375); Red Blood Count 4.69 M/mm3 (4.2-5.4); White Blood Count 6.7 K/mm3 (4.5-10.0)
[2024-12-03 13:39] LABS: Alanine Aminotransferase 18 U/L (6-35); Albumin Level 4.0 g/dL (3.5-5.1); Alkaline Phosphatase 118 U/L (38-126); Anion Gap 7 mmol/L (4-12); Aspartate Amino Transferase 39 U/L (14-36); Bilirubin,Total 1.3 mg/dL (0.2-1.3); Blood Urea Nitrogen 21 mg/dL (7-17); Calcium 9.2 mg/dL (8.4-10.2); Carbon Dioxide 25 mmol/L (22-30); Chloride 106 mmol/L (98-107); Cholesterol 125 mg/dL (0-200); Estimated Glomerular Filt Rate > 60; Glucose 99 mg/dL (65-110); HDL Direct 27 mg/dL; Potassium 4.5 mmol/L (3.4-5.0); Sodium 138 mmol/L (137-145); Total Protein 6.8 g/dL (6.3-8.2); Triglycerides 161 mg/dL (<150)
[2024-12-03 15:07] LABS: Hemoglobin A1C 5.9 % (<5.7)
[2024-12-03 15:58] LABS: Thyroid Stimulating Hormone Reflex 0.591 uIU/mL (0.465-4.68)
== END 2024-12-03 08:31 | disposition home or self-care (01) ==
LOC: ANHGOSHLAB 08:32
PROVIDERS: PCP Family Medicine; Visit Provider Nurse Practitioner Family
DX: E78.5 Hyperlipidemia, unspecified (principal); E55.9 Vitamin D deficiency, unspecified; Z00.00 Encounter for general adult medical examination without abnormal findings; R73.01 Impaired fasting glucose; Z68.42 Body mass index [BMI] 45.0-49.9, adult
CPT/HCPCS: 36415; 80053; 80061; 82306; 83036; 84443; 85025

== ENCOUNTER 2025-03-12 10:59 | Emergency (ER) | payer OTHER, SELFPAY ==
[2025-03-12 11:20] VITALS: BP 124/74; PULSE 87; RESP 16; TEMP 36.6; O2SAT 99
--- NOTE | 2025-03-12 12:14 | ED.URI ---
HPI - URI/Sore Throat General Chief Complaint: Upper Respiratory Infection Stated Complaint: SINUS CONGESTION Time Seen by Provider: 03/12/25 12:04 Source: patient and RN notes reviewed Mode of arrival: ambulatory Limitations: no limitations History of Present Illness HPI Narrative: 50-year-old female patient presents today complaining of a 2 week history of intermittent frontal headache with an 8 day history of productive cough and a one-week history of nasal congestion, rhinorrhea, postnasal drip. Denies fever or shortness of breath. She is taking oral Mucinex with some improvement and oxymetazoline nasal spray for the past 2 days with improvement of her nasal congestion. Related Data Home Medications ?Medication ?Instructions ?Recorded ?Confirmed ?Last Taken ?Type cholecalciferol (vitamin D3) 50 50 mcg PO DAILY 01/21/23 12/06/24 Unknown History mcg (2,000 unit) capsule magnesium oxide 250 mg PO DAILY 02/17/23 12/06/24 Unknown History ashwagandha extract 500 mg capsule mg PO 03/29/24 12/06/24 Unknown History cetirizine 10 mg tablet (Zyrtec) 10 mg PO DAILY PRN 12/06/24 12/06/24 Unknown History cyanocobalamin (vitamin B-12) 2,500 mcg PO DAILY 12/06/24 12/06/24 Unknown History 2,500 mcg tablet glucosamine HCl 1,500 mg tablet 1,500 mg PO DAILY for knees 12/06/24 12/06/24 Unknown History vitamin K2 100 mcg capsule 100 mcg PO DAILY 12/06/24 12/06/24 Unknown History Allergies Allergy/AdvReac Type Severity Reaction Status Date / Time azithromycin Allergy Unknown Unknown Verified 03/12/25 11:28 Sulfa (Sulfonamide Allergy Unknown Unknown Verified 03/12/25 11:28 Antibiotics) prednisone Allergy Hives Verified 03/12/25 11:28 [facility] Past Medical History Medical History (Reviewed 03/12/25 @ 12:15 by Katia Lazaro, [employer]AM[employer] ADVANCED OPERATOR MAINTAINER, TERMINAL MAKEUP OPERATOR) Sleep apnea with use of continuous positive airway pressure (CPAP) (~03/2021) Periodic limb movement disorder (vaginal after ) 2004, 2005 History of pulmonary embolism (~05/2005) PSVT (paroxysmal supraventricular tachycardia) (~02/2020) Vitamin D deficiency Hyperlipidemia Anxiety Surgical History Surgical History H/O cardiac radiofrequency ablation (~09/2023) History of cardiac radiofrequency ablation (~09/2023) H/O section (~2000) Family History Family History Grandparent Family history of malignant neoplasm of brain Family history of heart disease in male family member before age 55 Other Family history of alcoholism Family history of malignant neoplasm Family history of mental disorder Hypertension Social History Social History Social History: Patient is , lives in [place]. 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 Smoking status: Never smoker Alcohol intake: current Substance use: never Substance use type: does not use Lack of Transportation: No Lack of Food: Never True Current Housing: I Have Housing Concerned About Future Housing: No Difficulty Paying Gas/Electric Bills: No Difficulty Paying for Meds: No Currently Unemployed: No Education: Master's Degree or Higher Difficulty w/ Childcare or Family Care: No Living arrangements: with family Occupation/Education: occupation Gender identity (if verbalized by the patient): Female Sexual Orientation (if Verbalized by the Patient): Straight or Heterosexual Agree to blood products: Yes Comments At time of signature, I have reviewed and agree with nursing past medical, surgical, social and family history unless otherwise noted. Please see nursing chart for further information. There is no relevant family history pertinent to the presenting complaint Exam Narrative: GENERAL: Mildly ill-appearing, well-nourished, and in no acute distress. HEAD: Normocephalic, atraumatic. EYES: EOMI. No redness or drainage. Conjunctivae normal. ENT: Mucous membranes pink and moist. Nares congested. No rhinorrhea. TMs normal bilaterally. Throat normal. Uvula midline. NECK: Normal AROM. Supple. No lymphadenopathy. CHEST: No respiratory distress. Clear to auscultation. HEART: Regular rate and rhythm. No murmur appreciated. EXTREMITIES: Normal range of motion. No edema. SKIN: Warm, dry, no rash. Capillary refill normal. Normal skin turgor. NEURO: No focal deficits. Alert and oriented x3. Gait steady. PSYCH: Normal affect. No signs of depression or anxiety. Course Course Level of Care: Express Care Visit Vital Signs Vital signs: Vital Signs Temperature 98 F 03/12/25 11:20 Pulse Rate 87 03/12/25 11:20 Respiratory Rate 16 03/12/25 11:20 Blood Pressure 124/74 03/12/25 11:20 Pulse Oximetry 99 03/12/25 11:20 Temperature 98 F 03/12/25 11:20 Pulse Rate 87 03/12/25 11:20 Respiratory Rate 16 03/12/25 11:20 Blood Pressure 124/74 03/12/25 11:20 Pulse Oximetry 99 03/12/25 11:20 Oxygen Delivery Room Air 03/12/25 11:28 Reviewed MDM - URI/Sore Throat MDM Narrative Medical decision making narrative: 50-year-old female patient presents today complaining of a 2 week history of intermittent frontal headache with an 8 day history of productive cough and a one-week history of nasal congestion, rhinorrhea, postnasal drip. Denies fever or shortness of breath. She is taking oral Mucinex with some improvement and oxymetazoline nasal spray for the past 2 days with improvement of her nasal congestion. Upon exam, patient has some severe nasal congestion. Lung auscultation is normal. Patient will be started on a course of Augmentin for presumed bacterial sinusitis. She has been instructed on best practice on the use of oxymetazoline spray. Recommend switching over to Flonase unless absolutely necessary before bed as patient uses a nose mask for her CPAP. Patient agrees with plan. Vital signs stable. Anticipatory guidance given. Differential Diagnosis Differential diagnosis: Likely upper respiratory infection, sinusitis, viral infection and bronchitis Critical Care Time Critical Care Time Critical Care Time: No Discharge Plan Discharge Clinical Impression: Sinusitis Qualifiers: Sinusitis location: unspecified location Chronicity: acute Recurrence: non-recurrent Qualified Code(s): J01.90 - Acute sinusitis, unspecified Patient Disposition: Home Condition: Stable Instructions: Antibiotic Form, Sinusitis (ED) Additional Instructions: Please take the Augmentin as prescribed. As discussed, you may want to consider switching from the Mucinex nasal spray to the Flonase unless necessary. Follow-up with your PCP next week if symptoms are not improving. Patient Language: Romansh Prescriptions: New amoxicillin-pot clavulanate 875-125 mg tablet 1 tablet PO Q12H 7 Days Qty: 14 0RF No Action cholecalciferol (vitamin D3) 50 mcg (2,000 unit) capsule 50 mcg PO DAILY magnesium oxide 250 mg magnesium tablet 250 mg PO DAILY glucosamine HCl 1,500 mg tablet 1,500 mg PO DAILY Patient Comments: capsule Rx Instructions: administer with a meal vitamin K2 100 mcg capsule 100 mcg PO DAILY cyanocobalamin (vitamin B-12) 2,500 mcg tablet 2,500 mcg PO DAILY cetirizine [Zyrtec] 10 mg tablet 10 mg PO DAILY PRN ashwagandha extract 500 mg capsule PO amitriptyline 25 mg tablet 25 mg PO QHS PRN (Reason: sleep) Qty: 90 0RF citalopram 20 mg tablet See Rx Instructions .ROUTE .COMPLEX Qty: 90 3RF Dose Instruction: TAKE 1 TABLET DAILY Rx Instructions: TAKE 1 TABLET DAILY atorvastatin 20 mg tablet See Rx Instructions .ROUTE .COMPLEX Qty: 90 3RF Dose Instruction: TAKE 1 TABLET DAILY AT BEDTIME Rx Instructions: TAKE 1 TABLET DAILY AT BEDTIME Follow-up/Referrals: Tamanna Turpin APRN [Primary Care Provider, Family Practice] Time of Disposition: 12:18
== END 2025-03-12 12:24 | disposition home or self-care (01) ==
PROVIDERS: Emergency Provider Nurse Practitioner; PCP Nurse Practitioner Family
DX: J01.90 Acute sinusitis, unspecified (principal); E78.5 Hyperlipidemia, unspecified; E55.9 Vitamin D deficiency, unspecified; F41.9 Anxiety disorder, unspecified; G47.30 Sleep apnea, unspecified; Z86.711 Personal history of pulmonary embolism
CPT/HCPCS: 99213; G0463

== ENCOUNTER 2025-04-13 16:40 | Emergency (ER) | payer OTHER, SELFPAY ==
--- NOTE | 2025-04-13 16:43 | ED.FEMALEGU ---
HPI - Female Genitourinary General Chief complaint: Urogenital-Female Stated complaint: UTI SYMPTOMS Time Seen by Provider: 04/13/25 16:50 Source: patient Mode of arrival: ambulatory Limitations: no limitations History of Present Illness HPI Narrative: Betty is a 50 year old female patient presenting to the clinic today with c/o burning, frequency, and urgency with urination x3 days. No fever, chills, body aches. Denies any nausea or vomiting. No back pain or abdomen pain. Has not taken any medications for her symptoms. Related Data Home Medications ?Medication ?Instructions ?Recorded ?Confirmed ?Last Taken ?Type cholecalciferol (vitamin D3) 50 50 mcg PO DAILY 01/21/23 04/13/25 Unknown History mcg (2,000 unit) capsule magnesium oxide 250 mg PO DAILY 02/17/23 04/13/25 Unknown History ashwagandha extract 500 mg capsule mg PO 03/29/24 12/06/24 Unknown History cetirizine 10 mg tablet (Zyrtec) 10 mg PO DAILY PRN unknown 12/06/24 04/13/25 Unknown History cyanocobalamin (vitamin B-12) 2,500 mcg PO DAILY 12/06/24 04/13/25 Unknown History 2,500 mcg tablet glucosamine HCl 1,500 mg tablet 1,500 mg PO DAILY for knees 12/06/24 04/13/25 Unknown History vitamin K2 100 mcg capsule 100 mcg PO DAILY 12/06/24 04/13/25 Unknown History tirzepatide subcut 04/13/25 Unknown History Allergies Allergy/AdvReac Type Severity Reaction Status Date / Time azithromycin Allergy Unknown Unknown Verified 04/13/25 16:47 Sulfa (Sulfonamide Allergy Unknown Unknown Verified 04/13/25 16:47 Antibiotics) prednisone Allergy Hives Verified 04/13/25 16:47 Review of Systems Review of Systems: Pertinent positives per HPI. Patient denies any fever, chills, rash, headache, visual changes, dizziness, cough, runny nose, sore throat, shortness of breath, chest pain, palpitations, nausea, vomiting, diarrhea, constipation, abdominal pain. PMFSH Past Medical History Medical History Sleep apnea with use of continuous positive airway pressure (CPAP) (~03/2021) Periodic limb movement disorder (vaginal after ) 2004, 2005 History of pulmonary embolism (~05/2005) PSVT (paroxysmal supraventricular tachycardia) (~02/2020) Vitamin D deficiency Hyperlipidemia Anxiety Surgical History Surgical History H/O cardiac radiofrequency ablation (~09/2023) History of cardiac radiofrequency ablation (~09/2023) H/O section (~2000) Family History Family History Grandparent Family history of malignant neoplasm of brain Family history of heart disease in male family member before age 55 Other Family history of alcoholism Family history of malignant neoplasm Family history of mental disorder Hypertension Social History Social History Social History: Patient is , lives in [place]. 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 Smoking status: Never smoker Alcohol intake: current Substance use: never Substance use type: does not use Lack of Transportation: No Lack of Food: Never True Current Housing: I Have Housing Concerned About Future Housing: No Difficulty Paying Gas/Electric Bills: No Difficulty Paying for Meds: No Currently Unemployed: No Education: Master's Degree or Higher Difficulty w/ Childcare or Family Care: No Living arrangements: with family Occupation/Education: occupation Gender identity (if verbalized by the patient): Female Sexual Orientation (if Verbalized by the Patient): Straight or Heterosexual Agree to blood products: Yes Comments At the time of my signature, I reviewed and agree with the nursing past medical, surgical, social, and family history. There is no relevant family history pertinent to the patient complaint. Exam Narrative: General: Well-developed, obese, in no apparent distress. Head: Normocephalic, atraumatic. Cardio: Regular rate and rhythm, s1 and s2 normal, no murmur appreciated. Resp: Clear to auscultation bilaterally, no rhonchi, rales, wheezing or rubs. Abdomen: Soft, pliable, bowel sounds present in all quadrants, suprapubic tender to palpation, no organomegly, no CVAT tenderness. Course Course Level of Care: Express Care Visit MDM MDM Narrative Medical decision making narrative: At the time of visit patient is resting comfortably on the exam table. Patient appears to be nontoxic. c/o burning, frequency, and urgency with urination x3 days. No fever, chills, body aches. Denies any nausea or vomiting. No back pain or abdomen pain. Has not taken any medications for her symptoms. On exam patient has suprapubic tenderness, abdomen is soft, pliable, nondistended, no CVAT tenderness. Urinalysis dip was ordered Labs: Urinalysis dip positive for 2+ leukocytes and 2+ blood. We will send urine for culture. Plan: I suspect patient has UTI. Prescription for cephalexin was sent to the pharmacy. We will some send urine for culture. Supportive measures were discussed with the patient and they voiced understanding discharge instructions and agrees to treatment plan. Return precautions reviewed Differential Diagnosis Differential Diagnosis: Urinary tract infection, cystitis, overactive bladder syndrome Discharge Plan Discharge Clinical Impression: Urinary tract infection Qualifiers: Urinary tract infection type: acute cystitis Hematuria presence: with hematuria Qualified Code(s): N30.01 - Acute cystitis with hematuria Patient Disposition: Home Condition: Stable Instructions: Antibiotic Form, Urinary Tract Infection in Women (ED) Additional Instructions: Urine positive for 2+ leukocytes and 2+ blood. We will send urine for culture. Take cephalexin as prescribed Increase fluids and stay well hydrated Wipe front to back. May use wet wipes. Avoid tub baths If sexually active- pee before and after intercourse. Wear cotton panties Avoid tight clothing up against the genitals Follow up with your PCP in 1 week if symptoms persist. Patient Language: Hungarian Prescriptions: New cephalexin 500 mg capsule 500 mg PO Q12H 7 Days Qty: 14 0RF No Action tirzepatide subcut cholecalciferol (vitamin D3) 50 mcg (2,000 unit) capsule 50 mcg PO DAILY magnesium oxide 250 mg magnesium tablet 250 mg PO DAILY glucosamine HCl 1,500 mg tablet 1,500 mg PO DAILY Patient Comments: capsule Rx Instructions: administer with a meal vitamin K2 100 mcg capsule 100 mcg PO DAILY cyanocobalamin (vitamin B-12) 2,500 mcg tablet 2,500 mcg PO DAILY cetirizine [Zyrtec] 10 mg tablet 10 mg PO DAILY PRN (Reason: unknown) ashwagandha extract 500 mg capsule PO amitriptyline 25 mg tablet 25 mg PO QHS PRN (Reason: sleep) Qty: 90 0RF citalopram 20 mg tablet See Rx Instructions .ROUTE .COMPLEX Qty: 90 3RF Dose Instruction: TAKE 1 TABLET DAILY Rx Instructions: TAKE 1 TABLET DAILY atorvastatin 20 mg tablet See Rx Instructions .ROUTE .COMPLEX Qty: 90 3RF Dose Instruction: TAKE 1 TABLET DAILY AT BEDTIME Rx Instructions: TAKE 1 TABLET DAILY AT BEDTIME Follow-up/Referrals: Tamanna Turpin APRN [Primary Care Provider, [facility]] Time of Disposition: 16:58 Quality NIHSS Nursing Documentation ED NIHSS nursing documentation: reviewed/agree
[2025-04-13 16:49] VITALS: BP 134/82; PULSE 90; RESP 16; TEMP 36.4; O2SAT 98
[2025-04-13 16:59] LABS: EDUAAPPEAR Clear; EDUABILI Negative (Negative); EDUABLOOD 2+ (Negative); EDUACOLOR1 Yellow; EDUAGLUCOSE Negative (Negative); EDUAKETONE Negative (Negative); EDUALEUKO 2+ (Negative); EDUANITRATE Negative (Negative); EDUAPH 5.5; EDUAPROTEIN Negative (Negative); EDUASPGRAVITY 1.010; EDUAUROBILI 0.2
== END 2025-04-13 17:04 | disposition home or self-care (01) ==
PROVIDERS: Emergency Provider Nurse Practitioner Family; PCP Nurse Practitioner Family
DX: N30.01 Acute cystitis with hematuria (principal); E78.5 Hyperlipidemia, unspecified; E55.9 Vitamin D deficiency, unspecified; G47.30 Sleep apnea, unspecified; F41.9 Anxiety disorder, unspecified; Z86.711 Personal history of pulmonary embolism
CPT/HCPCS: 81003; 87086; 99213; G0463